=== PATIENT | female | born 1955 | race Caucasian/White ===

== ENCOUNTER 2025-08-16 11:42 | Emergency (ER) | payer OTHER ==
[~2025-08-16] VITALS: Ht 165.1 cm; Wt 82.7 kg
[2025-08-16 11:50] VITALS: TEMP 98.8
--- NOTE | 2025-08-16 11:59 | ELECTROCARDIOGRAPH REPORT ---
[facility] Test Date: 2025-08-16 Test Time: 11:49:34 Pat Name: LESLIE HICKEY Department: EMERGENCY ROOM [id number] Room: Gender: F Component Assembler: CLARENCE : 1955 Requested By: KADEN ERWIN Order Number: [id number] Reading MD: Dr. ADRIENNE Todd Measurements Intervals [place] Rate: 81 P: 74 IA: 161 QRS: 70 QRSD: 94 T: 61 QT: 379 QTc: 440 Interpretive Statements Sinus rhythm Probable left atrial enlargement Low voltage, precordial leads Baseline wander in lead(s) III,aVL,aVF,V1,V2,V3,V4 Electronically Signed On 08-17-2025 18:41:[address] ADRIENNE Todd Please click the below link to view image of tracing.
--- NOTE | 2025-08-16 12:01 | Physician Documentation ---
History of Present Illness ~ Chief Complaint: Stroke Alert Stated Complaint: NECK AND HEAD PAIN Time Seen by MD: 12:01 HPI 69-year-old female who presents as a possible stroke. Per triage, the patient presents with a headache and difficulty with balance. Stroke alert was activated. When I speak to the patient, she tells me that actually she has been having pain in her neck, gradually worsening over the past 2 or 3 weeks. She states that she then has developed a headache over the past couple of days, 3 days, that is radiating up from her neck. It is severe. She reports some photophobia. She took anti-inflammatories without much relief. She does feel like it is difficult to walk like she is slightly off balance. No fevers or chills. No nausea or vomiting. No visual changes. No tingling numbness or weakness to her extremities. No history of stroke or TIA. No history of migraines. Medication Reconciliation Allergies: Coded Allergies: No Known Allergies (Unverified , 08/16/25) Scheduled Cyclobenzaprine* (Cyclobenzaprine*), 1 TAB PO TID Review of Systems Constitutional: Denies: fever Neurological: Reports: headache Musculoskeletal: Reports: pain Physical Exam Vital Signs: Temperature: 98.8, Heart Rate: 74, Respiratory Rate: 16, BP: 179/78, Pulse Oximetry: 98, Weight: 82.730 Oxygen Flow Rate: 0 General Appearance General: This is an uncomfortable appearing middle-aged woman sitting in bed wearing sunglasses, family at bedside HEENT: Atraumatic, oropharynx is moist Neck: No midline tenderness, but the patient does have significant tenderness on palpation of the bilateral paracervical muscles in the muscles are very tight, she has restricted movement of her neck due to pain Heart: Regular rate and rhythm, normal-appearing peripheral perfusion Lungs: normal work of breathing, normal oxygen saturation on room air Abdomen: Soft, nondistended Neuro: Alert and oriented, no facial droop. Speech is clear. Cranial nerves 2 -12 appear grossly intact accept vision was not initially tested. Normal strength and sensation in all 4 extremities. Psychiatric: Appears uncomfortable but is cooperative with exam Progress Results/Orders Results/Orders Orders - KADEN ERWIN MD Monitor (08/16/25 11:58) 2 Large Bore Ivs (08/16/25 11:58) Chest,Single View (12/8/25 12:41) Accucheck (08/16/25 11:58) Ct Stroke Alert (08/16/25 12:00) [facility] Consult (08/16/25 11:58) Cta Neck/Head (08/16/25 13:00) Completed Orders - KADEN ERWIN MD Cbc/Diff (08/16/25 11:58) Electrocardiogram (08/16/25 11:58) Chest,Single View (08/16/25 12:41) Ct Stroke Alert (08/16/25 12:00) BMP (08/16/25 11:58) PTT (08/16/25 11:58) Pt Inr (08/16/25 11:58) Hs Troponin I W Calculations (08/16/25 11:58) Cta Neck/Head (08/16/25 13:00) Normal Saline 1000ml (0.9% Sodium Chlori (08/16/25 12:25) Prochlorperazine Inj (Compazine Inj) (08/16/25 12:25) Diphenhydramine Inj (Benadryl Inj.) (08/16/25 12:25) Ketorolac Trometh 15mg/Ml Vial (Toradol (08/16/25 12:25) Iohexol 350mg/Ml 100ml (Omnipaque 350mg/ (08/16/25 12:26) Medications Received in ER Medications (Trade) Dose Ordered Sig/Dali Route PRN Reason Start Time Stop Time Status Last Admin Dose Admin Sodium Chloride 1,000 ml @ 1,000 mls/hr ONCE ONCE IV 08/16/25 12:08/16/25 13:24 DC 08/16/25 13:28 1,000 MLS/HR (Compazine inj) 10 mg ONCE ONCE IV 08/16/25 12:08/16/25 12:26 DC 08/16/25 13:29 10 MG (Benadryl inj.) 12.5 mg ONCE ONCE IV 08/16/25 12:25 08/16/25 12:26 DC 08/16/25 13:35 12.5 MG (Toradol injection) 15 mg ONCE ONCE IV 08/16/25 12:25 08/16/25 12:26 DC 08/16/25 13:28 15 MG Vital Signs 08/16/25 08/16/25 08/16/25 08/16/25 11:50 12:18 12:30 12:45 Temp 98.8 Pulse 74 71 69 58 Resp 16 15 22 18 B/P (MAP) 179/78 149/82 (104) 170/74 138/60 Pulse Ox 98 99 97 100 O2 Flow Rate 0 08/16/25 08/16/25 08/16/25 08/16/25 13:00 14:07 14:09 14:46 Pulse 61 58 60 Resp 18 15 18 15 B/P (MAP) 162/78 157/72 (100) 186/63 Pulse Ox 97 98 98 Laboratory Tests Test 08/16/25 12:03 White Blood Count 4.6 Red Blood Count 4.62 Hemoglobin 14.5 Hematocrit 42.7 Mean Corpuscular Volume 92.4 Mean Corpuscular Hemoglobin 31.4 H Mean Corpuscular Hemoglobin Concent 34.0 Red Cell Distribution Width 12.7 Platelet Count 290 Mean Platelet Volume 7.2 L Neutrophils (%) (Auto) 54.0 Lymphocytes (%) (Auto) 32.7 Monocytes (%) (Auto) 8.5 Eosinophils (%) (Auto) 3.9 Basophils (%) (Auto) 0.9 Neutrophils # (Auto) 2.5 Lymphocytes # (Auto) 1.5 Monocytes # (Auto) 0.4 Eosinophils # (Auto) 0.2 Basophils # (Auto) 0.0 CBC Comment Prothrombin Time 10.3 INR International Normalized Ratio 1.0 Activated Partial Thromboplast Time 26 Coagulation Comments Sodium Level 141 Potassium Level 3.9 Chloride Level 108 H Carbon Dioxide Level 25.9 Anion Gap 7 L Blood Urea Nitrogen 15 Creatinine 0.70 Estimated GFR/1.73 m2 83 BUN/Creatinine Ratio 21.4 H Glucose Level 108 H Calcium Level 9.9 Troponin I High Sensitivity < 4 L Troponin I High Sens Percent Delta Troponin I Hi Sens Absolute Change Albumin 4.0 Chemistry Comments Re-Evaluation Re-Evaluation : Re-Evaluation Time: 14:22 Progress Shared decision-making conversation. Please see medical decision-making EKG/XRAY/CT/US/VASC/MRI EKG : Additional Comment I personally interpreted the EKG and this shows: Sinus rhythm, rate 81, QTC 440, no STEMI Consults/PCP Consults/PCP : Additional Comment Consult: Stroke neurology was emergently consulted. They recommend normal stroke workup. They recommend lumbar puncture if CTA is negative. They recommend MRI. Medical Decision Making Additional information obtaine: family Findings Further history obtained from the family Differential Dx:Considerations: Include: CVA, Electrolyte imbalance, Hypoglycemia, Mass lesion, Subarachnoid Hemorrhage, TIA Additional Information The patient presents with neck pain and a headache. She was initially started as a stroke alert. However during my evaluation this seems possibly related to cervical strain and cervicogenic headache. Stroke workup was completed, and was grossly unremarkable. Stroke neurology did recommend a lumbar puncture given that her headache started greater than 6 hours ago, to assess for subarachnoid hemorrhage. They also recommended admission for MRI. After symptomatic treatment with a migraine cocktail, the patient's symptoms had significantly improved. She was able to move her neck and her headache was well controlled. I discussed the recommendations of the neurologist. I had a long shared decision-making conversation with the patient and her family. Following this discussion, she did not want to proceed with a lumbar puncture or admission for an MRI. She feels like her headache was related to her tight neck muscles. This does seem possible. I explained the risks of leaving including a repeat b leed in her brain or worsening stroke. She was able to understand these risks. After this discussion she will be discharged home with a muscle relaxant and symptomatic treatment for cervicogenic headache. She did agree to return immediately if she develops a severe headache or other worsening symptoms. Departure Time of Disposition: 14:22 Disposition: 01 HOME / SELF CARE / HOMELESS Impression: Primary Impression: Muscle spasms of neck Additional Impression: Headache Condition: Improved Discharge Instructions: Cervicogenic Headache, Muscle Cramps and Spasms Departure Forms: Excuse form Work or School Excused From: Work Excuse beginning now through the following date: Aug 22, 2025 Additional Instructions: Please excuse Elsa from missing work yesterday, 12-7. She was in the emergency department. She should be excused from work for the next 1 week. Referrals: NO PRIMARY CARE PROVIDER (PCP) Prescriptions Cyclobenzaprine* (Cyclobenzaprine*) 10 Mg Tablet 1 TAB PO TID for 5 Days, #15 TAB 1 Refill Prov: KADEN ERWIN MD 08/16/25 Education Educated: Patient, Family Educated regarding: diagnosis, treatment, need for follow up Signature Scribe Signature: na Attestation: KADEN Hancock MD Aug 16, 2025 12:01
[2025-08-16 12:11] LABS: MEAN PLATELET VOLUME 7.2 FL (7.4-10.4); RED CELL DISTRIBUTION WIDTH 12.7 % (11.5-14.5)
[2025-08-16 12:24] LABS: APTT 26 SECONDS (22-32); INR 1.0 INR
--- NOTE | 2025-08-16 12:28 | RADIOLOGY REPORT ---
CLINICAL INFORMATION: Stroke alert. TECHNIQUE: Axial imaging was obtained through the brain without contrast. Coronal and sagittal reformatted images were obtained, reviewed, and stored. Images were reviewed in brain and bone windows. All CT scans at this medical facility are performed using dose modulation techniques as appropriate to a performed exam including the following: Automated exposure control was utilized; adjustment of the MA and/or KV according to patient size; and use of iterative reconstruction technique. CTDIvol = 53.6 mGy DLP = 848.43 mGy-cm COMPARISON: None FINDINGS: There is no acute intracranial hemorrhage. No mass effect or midline shift. The ventricles and sulci are within normal limits in size for age. Basal cisterns are patent. The calvarium is unremarkable. Paranasal sinuses and mastoid air cells are clear. IMPRESSION: No CT evidence of acute intracranial abnormality. Critical findings Critical Result: Stroke Alert Findings discussed with Dr. Sorenson, at 08/16/2025 02:24 PM FURNITURE ASSEMBLER, and acknowledged receipt and understanding of the findings. ..
--- NOTE | 2025-08-16 12:50 | RADIOLOGY REPORT ---
CHEST RADIOGRAPH Indication: Stroke Alert Technique: Single frontal view of the chest was obtained Comparison: None FINDINGS: Lines and Tubes: None Lungs: No focal consolidation. Pleura: No effusion. No pneumothorax. Cardiomediastinal contours: Unremarkable Bones: No acute osseous abnormality. IMPRESSION: 1. No acute cardiopulmonary disease.
--- NOTE | 2025-08-16 13:05 | [facility] CONSULT REPORT ---
[facility] Procedure Note [facility] Procedure Note Consult [facility] Note # Demographics Consult Type: Acute Stroke Level 2 (4.5-24 hrs) Patient Location: Emergency Room First Name: LESLIE Last Name: RUPERTO Date of : 1955 Age: 69 Gender: Female Facility: [facility] Time of Initial Page (): 08/16/2025 12:04 First Contact with Site (): 08/16/2025 12:05 # HPI History: Here with posterior headache and off balance and a a stiff neck and photophobia since yesterday. Last Known Normal: 08/15 pm # Scores Time of exam and NIHSS (): 08/16/2025 12:39 Level of Consciousness 1a: [0] = Alert; keenly responsive LOC Questions 1b: [0] = Answers both questions correctly LOC Commands 1c: [0] = Performs both tasks correctly Best Gaze 2: [0] = Normal Visual 3: [0] = No visual loss Facial Palsy 4: [0] = Normal symmetrical movements Motor Arm Left 5a: [0] = No drift Motor Arm Right 5b: [0] = No drift Motor Leg Left 6a: [0] = No drift Motor Leg Right 6b: [0] = No drift Limb Ataxia 7: [0] = Absent Sensory 8: [0] = Normal Best Language 9: [0] = No aphasia Dysarthria 10: [0] = Normal Extinction and Inattention 11: [0] = No abnormality NIHSS Total: 0 # Exam Vitals: vital signs reviewed Additional Neurologic Exam: has some nexck stiffness # Data Head CT: - no bleed - preliminarily reviewed by me, please refer to radiology read for official reading # Assessment Impression: - Headache Concerning features for sentinal bleed. Consider LP after CTA h/n to evaluate for xathochromia. # Plan Thrombolytic/Intervention: NOT IV Thrombolysis or IA Intervention candidate Thrombolytic Exclusion: > 4.5 hours Intraarterial Exclusion: - non-disabling - clinical exam not consistent with presence of large vessel occlusion (LVO), can reconsider if LVO found on vascular imaging Target Blood Pressure: SBP < 180 Imaging: (urgency: STAT): - CT Angiogram Head and CT Angiogram Neck AND call back with results if abnormal Imaging: (urgency: routine): - MRI Brain with AND without contrast Diagnostic Test: - Lumbar puncture: cell count, protein, glucose, gram stain, and culture Other: - If patient has any neurological deterioration please call me back immediately - I have discussed my recommendations with the referring provider - would not pursue stroke work-up if MRI is negative # Logistics Attestation of consult completion: The patient is located at: [facility]. Facility staff participated in the visit. I performed this telemedicine visit from my offsite office utilizing interactive 2 way audio and visual telecommunication technology at the request of the onsite emergency room provider. Total time spent in telemedicine encounter: I spent 21 minutes reviewing clinical data and/or imaging, obtaining history, examining the patient, communicating with the onsite care team, and in preparation of this report. Critical Care time: 21 minutes of this encounter were critical care time. Due to a high probability of clinically significant, life-threatening neurologic deterioration, the patient required my highest level of preparedness to intervene emergently. I spent this critical care time managing the patient in conjunction with on-site providers who requested my consultation. In addition to the above, this critical care time included recommendation and review of studies, including imaging; arranging an urgent treatment and management plan with on-site providers; evaluation of patient's response to treatment; and documentation. This critical care time was performed to assess and manage the high probability of imminent, life-threatening deterioration that could result in neurologic catastrophe. # Demographics First Name: LESLIE Last Name: RUPERTO Facility: [facility] Electronically signed at 08/16/2025 12:42 ([place] Time) by John Peguero MD Neuro Consult Order placed for: Yes ALEX PEGUERO MD Aug 16, 2025 13:05
[2025-08-16 13:24] LABS: CREATININE 0.70 MG/DL (0.40-0.90); TOTAL CARBON DIOXIDE 25.9 MMOL/L (24-32); eCRCL 69 ML/MIN; eGFR 83 ML/MIN
[2025-08-16] MEDS: normal saline 1000ml 1,000 ML IV ONE (13:28)
[2025-08-16] MEDS: ketorolac trometh 15mg/ml vial 15 MG/ML ML IV ONE (13:28)
--- NOTE | 2025-08-16 13:32 | RADIOLOGY REPORT ---
EXAM: CT CTA NECK/HEAD HISTORY: huynh, neck stiffness LEVEL 2 STROKE ALERT, dizziness. COMPARISON: CT scan of the head from earlier same day. TECHNIQUE: High-resolution helical CT images of the head and neck were performed with 100 ml omnipaque 350 IV contrast utilizing CTA protocol. Sagittal and coronal reformatted images and 3-D MIP reconstructions were obtained. This CT exam was performed using one or more of the following dose reduction techniques: Automated exposure control, adjustment of the mA and/or kV according to patient size, or use of iterative reconstruction technique. Radiation Dose: CT Dose: CTDI volume is 14.44 mGy. Dose-length product is for 556.78 mGy*cm FINDINGS: [place]: No evidence of aneurysmal dilatation or significant stenosis about the [place]. The bilateral MCAs, ACAs, and medical sales are widely patent. The cavernous and petrous ICAs are patent. Right carotid system: No significant stenosis of the CCA, ICA, or ECA origin. Left carotid system: No significant stenosis of the CCA, ICA, or ECA origin. Vertebrobasilar: The bilateral vertebral arteries and basilar artery are patent. The left vertebral artery is slightly dominant. Miscellaneous: The central pulmonary arteries are ectatic, not fully imaged here. There is mild paraseptal emphysema of the lung apices. The patient is edentulous. There are advanced degenerative changes of the bilateral temporomandibular joints. There is mild mucosal thickening of the bilateral maxillary sinuses. There is degenerative disc disease, most severe C4-C7. There is [id number] spinal canal stenosis at C6-C7; mild spinal canal stenosis at C5-C6. There is significant neural foraminal stenosis at C6-C7 bilaterally. IMPRESSION: 1. No aneurysmal dilatation or significant stenosis about the [place]. 2. No significant stenosis of the bilateral cervical carotid arteries or vertebral arteries. 3. Pulmonary arterial hypertension. 4. Mild emphysema. 5. Mild bilateral maxillary sinus disease. 6. Cervical degenerative disc disease with [id number] spinal canal stenosis and significant neural foraminal stenosis bilaterally at the C6-C7 level.
[2025-08-16] MEDS ORDERED: CYCL-1 PO (14:25)
[2025-08-16 14:46] VITALS: BP 186/63; PULSE 60; RESP 15; O2SAT 98
== END 2025-08-16 14:49 | disposition home or self-care (01) ==
LOC: ER 11:45
DX: M62.838 Other muscle spasm (principal); R51.9 Headache, unspecified; Z79.899 Other long term (current) drug therapy
CPT/HCPCS: 36415; 70496; 70498; 71045; 80048; 84484; 85025; 85610; 85730; 93005; 96361; 96374; 96375; 99285; J0780; J1200; J1885; J7030; Q9967